=== PATIENT | female | born 1975 | race Caucasian/White ===

== ENCOUNTER 2022-11-16 08:55 | Emergency (ER) | payer OTHER ==
--- NOTE | 2022-11-16 10:16 | ED Physician Documentation ---
PD HPI LOWER EXT INJURY - Stated complaint Stated Complaint: RT ANKLE INJ - Chief complaint Chief Complaint: Ext Problem - History obtained from History obtained from: Patient - History of Present Illness PD HPI LOW EXT INJURY LOCATION: Right, Ankle Type of injury: Twist (while walking uneven area, with inversion mechanism.) Where injury occurred: Home Timing - onset: Today Timing - details: Abrupt onset, Still present Worsened by: Moving, Palpating Associated symptoms: Swelling. No: Weakness, Numbness Recently seen: Not recently seen Review of Systems Neurologic: denies: Focal weakness, Numbness PD PAST MEDICAL HISTORY - Past Medical History Musculoskeletal: None - Present Medications Home Medications: Ambulatory Orders Medication Instructions Recorded Confirmed No Known Home Medications 11/16/22 11/16/22 - Allergies Allergies/Adverse Reactions: Allergies Allergy/AdvReac Type Severity Reaction Status Date / Time No Known Drug Allergies Allergy Verified 11/16/22 09:24 PD ED PE NORMAL - Vitals Vital signs reviewed: Yes - General General: Alert and oriented X 3, No acute distress, Well developed/nourished - Derm Derm: Normal color, Warm and dry, No rash - Extremities Extremities: Other (tender lateral ankle below malleolus. No gross deformity. Achilles not tender. No gross laxity with inversion stress but limited by pain. ) - Neuro Neuro: No motor deficit (guarded movement due to pain so full strength per se not assessable. ), No sensory deficit Results - Vitals Vitals: Oxygen O2 Source Room air - Rads (name of study) right ankle Relevant Findings:: Final report received, EMP independent interpretation of test (no fractuers. Mortis width appears normal. ) PD Medical Decision Making - ED course Complexity details: reviewed results, considered differential (inversion mechanism with lateral sprain, no fracture by xray. Can treat with aircast and crutches. ), d/w patient Departure - Departure Disposition: 01 Home, Self Care Clinical Impression: Pain in lateral portion of right ankle Ankle sprain Qualifiers: Encounter type: initial encounter Involved ligament of ankle: unspecified ligament Laterality: right Qualified Code(s): S93.401A - Sprain of unspecified ligament of right ankle, initial encounter Condition: Stable Record reviewed to determine appropriate education?: Yes Instructions: ED Sprain Ankle Comments: I do not see any fractures on your x-ray. The radiology report final is still pending. It does sound like a quite good sprain and likely some partial tearing of the ligaments given the degree of pain and such. This can take several weeks or so for healing. The worst pain of it will be the first few days until the swelling goes down. Ice elevate and rest it often. Ankle brace and crutches for nonweightbearing. It then should improve to moderately sore for the next week to week and a half. Start progressing weightbearing as tolerated but continue with the ankle supported with any use. Although this will heal well over several weeks. Continue with some ankle support when up and around during that timeframe. Tylenol ibuprofen as needed for pains. Recheck if not progressing and that above timeframe. Discharge Date/Time: 11/16/22 11:15
--- NOTE | 2022-11-16 11:11 | XRAY Report ---
PROCEDURE: Ankle 3 View RT INDICATIONS: ankle inversion injury TECHNIQUE: 3 views of the ankle were acquired. COMPARISON: None. FINDINGS: Bones: No fractures or dislocations. Ankle mortise is normally aligned. Prominent plantar calcanea l spur. No suspicious bony lesions. Soft tissues: No tibiotalar joint effusion. Achilles tendon appears normal. IMPRESSION: Intact right ankle. Reviewed by: Salma Bentley MD on 11/16/2022 10:09 AM [facility] Approved by: Salma Bentley MD on 11/16/2022 10:09 AM [facility] Station ID: [id number]
[2022-11-16 11:18] VITALS: BP 114/73
== END 2022-11-16 11:15 | disposition home or self-care (01) ==
LOC: ED 08:55
DX: S93.401A Sprain of unspecified ligament of right ankle, initial encounter (principal); X50.1XXA Overexertion from prolonged static or awkward postures, initial encounter; Y93.01 Activity, walking, marching and hiking; Y92.009 Unspecified place in unspecified non-institutional (private) residence as the place of occurrence of the external cause
CPT/HCPCS: 99283